=== PATIENT | female | born 1985 | race Caucasian/White ===

== ENCOUNTER 2020-07-19 01:18 | Outpatient (CLI) | payer OTHER, SELFPAY ==
[2020-07-19 16:30] LABS: SARS-CoV-2 RNA PCR Negative
== END 2020-07-19 01:19 | disposition home or self-care (01) ==
LOC: ANHCOVIDDT 01:18
PROVIDERS: Visit Provider Obstetrics & Gynecology Gynecology
DX: Z01.812 Encounter for preprocedural laboratory examination (principal); Z20.828 Contact with and (suspected) exposure to other viral communicable diseases
CPT/HCPCS: 87635; C9803; U0003

== ENCOUNTER 2020-07-22 02:00 | Day surgery (SDC) | payer OTHER, SELFPAY ==
[2020-07-08 12:54] VITALS: BMI 33.3
--- NOTE | 2020-07-21 09:50 | WPDANESEPP ---
Anes - Eval Pre Procedure Procedure: Operation Date: 07/22/20 07:30 Proposed Procedures p Laparoscopic Bilateral Tubal Ligation with Fallopian Rings - Bibiana Thompson MD Date/Time: 07/21/20 09:50 Pre Op Diagnosis: DESIRES STERILIZATION Patient Data Age: 35 Gender: F Height: 1.65 m Weight: 90.72 kg Allergies Allergy/AdvReac Type Severity Reaction Status Date / Time latex Allergy Unknown RASH Verified 07/08/20 12:55 Home Medications Medication Instructions Recorded Confirmed Type acetaminophen [Tylenol Extra 1,000 mg PO Q6H PRN 07/08/20 07/08/20 History Strength] ibuprofen 400 mg PO Q6H PRN 07/08/20 07/08/20 History levonorgestrel [Mirena] 1 device INTRAUTERINE ONCE 07/08/20 07/08/20 History multivitamin 1 tablet PO DAILY 07/08/20 07/08/20 History Patient hx anesthesia problems: none Family hx anesthesia problems: none PMFSH Past Medical History Medical History (Updated 07/21/20 @ 09:50 by Derek Iglesias CRNA) Anxiety Back pain Surgical History Surgical History (Updated 07/21/20 @ 09:51 by Derek Iglesias CRNA) History of tonsillectomy S/P cholecystectomy Family History Family History (Updated 05/15/16 @ 23:21 by DOCTOR UNKNOWN) Mother Patient's mother is in good health Father Patient's father is in good health Sibling Patient's brother is in good health Social History Social History Smoking status: Never smoker Alcohol intake: current Drinks per week: 1 Spiritual care concerns: No Exam Day of Procedure 07/21/20 09:50
[2020-07-22] VITALS (11 sets, daily range): BP systolic 101–124; BP diastolic 67–84; PULSE 59–87; RESP 12–22; TEMP 36.6–36.8; O2SAT 93–100
[2020-07-22] MEDS: LACTATED RINGERS 1,000 ML 30 ML IV CONT ×2 (06:50→08:41)
--- NOTE | 2020-07-22 06:50 | WPDANESEPPF ---
Anes - Initial Pre Proc Eval Procedure: Operation Date: 07/22/20 07:30 Proposed Procedures p Laparoscopic Bilateral Tubal Ligation with Fallopian Rings - Bibiana Thompson MD Date/Time: 07/22/20 06:50 Surgeon: Bibiana Thompson MD Pre Op Diagnosis: DESIRES STERILIZATION Patient Data Age: 35 Gender: F Height: 1.65 m Weight: 90.72 kg Allergies Allergy/AdvReac Type Severity Reaction Status Date / Time latex Allergy Unknown RASH Verified 07/08/20 12:55 Home Medications Medication Instructions Recorded Confirmed Type acetaminophen [Tylenol Extra 1,000 mg PO Q6H PRN 07/08/20 07/08/20 History Strength] ibuprofen 400 mg PO Q6H PRN 07/08/20 07/08/20 History levonorgestrel [Mirena] 1 device INTRAUTERINE ONCE 07/08/20 07/08/20 History multivitamin 1 tablet PO DAILY 07/08/20 07/08/20 History Patient hx anesthesia problems: none Family hx anesthesia problems: none PMFSH Past Medical History Medical History (Updated 07/21/20 @ 09:50 by Derek Iglesias CRNA) Anxiety Back pain Surgical History Surgical History (Updated 07/21/20 @ 09:51 by Derek Iglesias CRNA) History of tonsillectomy S/P cholecystectomy Family History Family History (Updated 05/15/16 @ 23:21 by DOCTOR UNKNOWN) Mother Patient's mother is in good health Father Patient's father is in good health Sibling Patient's brother is in good health Social History Social History Smoking status: Never smoker Alcohol intake: current Drinks per week: 1 Spiritual care concerns: No Anes - Eval Final PreProcedure Day of Procedure 07/22/20 06:50 Patient weight: obese Heart: regular rate and rhythm Lungs: clear to auscultation and normal air movement Airway: Mallampati scale class II Neurological: alert and oriented Last oral intake: >/= 8 hours ASA classification: II Emergent: no Anesthetic plan: proceed Anesthesia type and monitoring: general ETT and standard monitoring Informed Consent: The patient's anesthetic plan and its attendant risks and benefits were discussed with the patient/family/POA. Questions were solicited and answers provided to the satisfaction of the patient/family/POA.
[2020-07-22] MEDS: KETOROLAC 15 MG/ML VIAL (*BKC) IV PUSH (06:51)
[2020-07-22] MEDS: ACETAMINOPHEN 500 MG TABLET 1000 MG PO (06:51)
--- NOTE | 2020-07-22 07:18 | PM.IMHP ---
H&P: HPI History of Present Illness Date/Time: 07/22/20 07:18 Chief complaint: DESIRES STERILIZATION Narrative: Mathew Reese is a 35 year old female who has completed her childbearing and want to proceed with permanent control via sterilization. She also prefers her IUD be removed. Risks of infection, bleeding, injury to internal organs, and failure (with increased ectopic) were reviewed with the patient. She is aware this will be done under general anesthesia. Post op expectations reviewed. Patient questions answered and she agrees to proceed. PMFSH Past Medical History Medical History (Updated 07/22/20 @ 07:22 by Bibiana Thompson MD) Anxiety Asthma until high school Back pain (normal spontaneous vaginal delivery) x 3 Surgical History Surgical History (Updated 07/21/20 @ 09:51 by Derek Iglesias CRNA) History of tonsillectomy S/P cholecystectomy Family History Family History (Updated 05/15/16 @ 23:21 by DOCTOR UNKNOWN) Mother Patient's mother is in good health Father Patient's father is in good health Sibling Patient's brother is in good health Social History Social History Smoking status: Never smoker Alcohol intake: current Drinks per week: 1 Spiritual care concerns: No Meds Home Medications and Allergies Home Medications Medication Instructions Recorded Confirmed Type acetaminophen [Tylenol Extra 1,000 mg PO Q6H PRN 07/08/20 07/08/20 History Strength] ibuprofen 400 mg PO Q6H PRN 07/08/20 07/08/20 History levonorgestrel [Mirena] 1 device INTRAUTERINE ONCE 07/08/20 07/08/20 History multivitamin 1 tablet PO DAILY 07/08/20 07/08/20 History Allergies Allergy/AdvReac Type Severity Reaction Status Date / Time latex Allergy Unknown RASH Verified 07/08/20 12:55 Exam Const: General: no acute distress Resp: Auscultation: clear to auscultation bilaterally Cardio: Rate: regular rate Rhythm: regular rhythm : External Female Exam: normal external appearance Speculum Exam - Vagina: normal appearance of the vagina Speculum Exam - Cervix: normal appearance of the cervix Bimanual exam- vagina & uterus: normal bimanual exam Assessment and Plan Assessment and plan (1) Encounter for sterilization: Code(s): Z30.2 - Encounter for sterilization Status: Acute Assessment and Plan: Plan to proceed with laparoscopic BTL with falope rings and removal of IUD
--- NOTE | 2020-07-22 07:22 | WPDHPUPDATE1 ---
History and Physical Update Update Date/Time: 07/22/20 07:22 History and Physical has been reviewed, including an updated exam of the patient. There are NO changes in the patient's condition. Risks, benefits, and alternatives have been discussed and questions answered. Patient agrees to proceed with procedure.
--- NOTE | 2020-07-22 08:17 | PM.PROC ---
Procedure Note - Detailed Date of procedure: 07/22/20 Pre-op diagnosis: DESIRES STERILIZATION Removal of IUD with missing strings Post-op diagnosis: same Procedure performed: Removal of IUD Laparoscopic BTL with falope rings Description of procedure: The patient was taken to the operating room and placed in the dorsal lithotomy position. She was prepped and draped in the usual sterile fashion. Bladder is drained with a latex-free catheter. [place] speculum was placed in the vagina and the cervix is grasped on the anterior lip with a tenaculum. No IUD strings are noted. The uterus is sounded to 7cm and noted to be anteverted. The uterine packing forceps are used to grasp the IUD strings within the uterine cavity and the IUD removed intact. The IUD is discarded. DAVE manipulator 6cm is placed. Attention is then turned to the abdomen. A vertical skin incision is made at the base of the umbilicus. The abdomen is tented and the varies needle placed. Water drop test and opening patient pressure is 7cm. Pneumoperitoneum was obtained to patient pressure of 15mmHg. The Veress needle is removed and the 5mm Optiview trocars placed. Intra-abdominal placement is confirmed with the laparoscope. The 8mm skin incision was made 2cm above the symphysis pubis. The 8mm trocar is placed under direct visualization. The blunt probe is used to bring the tubes into the surgical field. The ring applicator is placed and the right tube grasped with a ring applicator. A loop is drawn into the applicator and the ring is applied. The identical procedure was performed on the opposite side. Bilaterally there is a good loop of tube within each ring. Picture documentation is taken. All instruments are removed. Pneumoperitoneum is reduced. Skin incisions are closed using 4-0 nylon in an interrupted fashion. Sterile bandages are applied. Vaginal instruments are removed. Instrument sponge and needle counts are correct per the OR staff. Patient is awakened from anesthesia and taken to recovery in stable condition. Anesthesia: GETA Surgeon: Bibiana Thompson MD Estimated blood loss (mL): 5 Drains: No Packing: No Pathology: none sent Complications: No immediate complications Condition: stable Disposition: PACU Findings: No IUD strings Uterus 7 cm normal appearing tubes, ovaries, and uterus
[2020-07-22] MEDS: HYDROmorphone HCL INJ (*CRX) 1 MG/ML SYR 0.5 MG IV PUSH ×4 (08:26→08:51)
[2020-07-22] MEDS: diphenhydrAMINE HCl INJ 50 MG/ML VIAL 12.5 MG IV PUSH ×2 (08:47→08:58)
[2020-07-22] MEDS: fentaNYL CITRATE INJ (*CRX) 100 MCG/2 ML VIAL 25 MCG IV PUSH ×2 (09:48→09:53)
[2020-07-22] MEDS: oxyCODONE HCL (*CRX) 5 MG TAB IR PO (10:32)
== END 2020-07-22 11:25 | disposition home or self-care (01) ==
PROVIDERS: Visit Provider Obstetrics & Gynecology Gynecology
PROC: (CPT 58671; principal; 2020-07-22 07:30)
DX: Z30.2 Encounter for sterilization (principal); T83.32XA Displacement of intrauterine contraceptive device, initial encounter; Y84.8 Other medical procedures as the cause of abnormal reaction of the patient, or of later complication, without mention of misadventure at the time of the procedure
CPT/HCPCS: 58671; 58301; A4264; A9270; J1100; J1170; J1200; J1885; J2250; J2405; J2704; J3010; J7120

== ENCOUNTER 2022-09-02 09:41 | Emergency (ER) | payer OTHER, SELFPAY ==
--- NOTE | ~2022-09-02 | US_ITS ---
EXAMINATION: US venous doppler [facility] DATE: 09/02/2022 10:53 INDICATION: Left lower limb pain and swelling TECHNIQUE: Grayscale ultrasound images without and with compression and Doppler ultrasound images of the left lower extremity veins were obtained. COMPARISON: None. FINDINGS: The visualized portions of left common femoral vein, profunda (deep) femoral vein, femoral vein, popl iteal vein, peroneal veins, posterior tibial veins, gastrocnemius vein and greater saphenous vein out flow are patent. IMPRESSION: 1. No deep venous thrombosis in the left lower limb. Reviewed, dictated and finalized at location B. MATIC SYSTEM CONVEYOR OPERATOR
[2022-09-02 10:09] VITALS: BP 129/92; PULSE 88; RESP 14; TEMP 36.5; O2SAT 100
--- NOTE | 2022-09-02 11:54 | ED.LOWEXIN ---
HPI - Extremity Injury (Lower) General Chief Complaint: Extremity Injury, Lower Stated Complaint: L calf pain Time Seen by Provider: 09/02/22 11:54 Source: patient History of Present Illness HPI Narrative: 37 years old white female drove herself to the emergency room because of pain at the left calf muscles started few days ago. Patient is telling me that she drove her car for roughly 3 hours in the row and she is concerned about the possibility of deep vein thrombosis. Patient denies shortness of breath or chest pain. She denies recent trauma or twist or fall Related Data Home Medications Medication Instructions Recorded Confirmed acetaminophen 500 mg tablet 1,000 mg PO Q6H PRN Pain 07/08/20 07/22/20 (Tylenol Extra Strength) ibuprofen 400 mg tablet 400 mg PO Q6H PRN Pain 07/08/20 07/22/20 levonorgestrel 20 mcg/24 hours (8 1 device intrauterine ONCE 07/08/20 07/08/20 yrs) 52 mg intrauterine device (Mirena) multivitamin 1 tablet PO DAILY 07/08/20 07/22/20 Allergies Allergy/AdvReac Type Severity Reaction Status Date / Time latex Allergy Unknown RASH Verified 07/22/20 07:31 Review of Systems Review of Systems: All systems reviewed & are unremarkable except as noted in HPI and below PMFSH Past Medical History Medical History Anxiety Asthma until high school Back pain (normal spontaneous vaginal delivery) x 3 Surgical History Surgical History History of tonsillectomy S/P cholecystectomy Family History Family History Mother Patient's mother is in good health Father Patient's father is in good health Sibling Patient's brother is in good health Social History Social History Smoking status: Never smoker Alcohol intake: current Drinks per week: 1 Spiritual care concerns: No Exam Narrative: General appearance: Well-developed, well-nourished Skin: Normal color Head: Normocephalic, nontraumatic Eyes: Clear conjunctiva ENT: Oropharynx normal, ears normal, nose normal Neck: Supple, nontender Chest and respiratory: Airway patent, no respiratory distress, no accessory muscle use Heart: Regular rate/rhythm Abdomen: Soft, nontender, no organomegaly, quiet bowel sounds Vascular: Normal peripheral pulses, normal capillary refill. Musculoskeletal: Slight tenderness left calf muscles, no bruises, no rash, no swelling, both lower legs are the same size. Slight more varicose vein at the left lower leg compared to the right 1. 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, no gross motor deficit Course Vital Signs Vital signs: Vital Signs Temperature 36.5 C 09/02/22 10:09 Pulse Rate 88 09/02/22 10:09 Respiratory Rate 14 09/02/22 10:09 Blood Pressure 129/92 H 09/02/22 10:09 Pulse Oximetry 100 09/02/22 10:09 Oxygen Delivery Room Air 09/02/22 10:09 Temperature 36.5 C 09/02/22 10:09 Pulse Rate 88 09/02/22 10:09 Respiratory Rate 14 09/02/22 10:09 Blood Pressure 129/92 H 09/02/22 10:09 Pulse Oximetry 100 09/02/22 10:09 Oxygen Delivery Room Air 09/02/22 10:09 MDM - Extremity Injury (Lower) Imaging Data Radiologist's impression: Impressions Venous Doppler Study 09/02/22 10:53 IMPRESSION: 1. No deep venous thrombosis in the left lower limb. Critical Care Time Critical Care Time Critical Care Time: No Discharge Plan Discharge Clinical Impression: Left leg pain, Varicose ve
== END 2022-09-02 12:20 | disposition home or self-care (01) ==
PROVIDERS: Emergency Provider Emergency Medicine; PCP Emergency Medicine
DX: M79.662 Pain in left lower leg (principal); I83.812 Varicose veins of left lower extremity with pain
CPT/HCPCS: 93971; 99284

== ENCOUNTER 2024-02-24 10:14 | Outpatient (CLI) | payer OTHER, SELFPAY ==
--- NOTE | ~2024-02-24 | US_ITS ---
Pelvic ultrasound. Clinical History: Excessive and frequent menstruation Technique: Realtime transabdominal scanning of the pelvis was performed. Color flow Doppler and Doppl er spectral analysis were performed. Findings: The uterus is anteverted. The endometrial stripe has a thickness of 5 mm. No focal mass is identified. The right ovary measures 2.3 x 2.0 x 2.5 cm. No significant right ovarian or adnexal mass is seen. The left ovary measures 2.0 x 2.0 x 2.3 cm. No significant left ovarian or adnexal mass is seen. Vascular flow present in both ovaries on Doppler spectral analysis. There is no evidence of free fluid in the cul de sac. Impression: Unremarkable pelvic ultrasound. Reviewed, dictated and finalized at location . Impression: Unremarkable pelvic ultrasound.
== END 2024-02-24 10:15 ==
PROVIDERS: PCP Nurse Practitioner; Visit Provider Nurse Practitioner
DX: N92.0 Excessive and frequent menstruation with regular cycle (principal)
CPT/HCPCS: 76856

== ENCOUNTER 2024-04-21 13:09 | Emergency (ER) | payer OTHER, SELFPAY ==
--- NOTE | ~2024-04-21 | XR_ITS ---
EXAMINATION: XR chest 2V DATE: 04/21/2024 13:47 INDICATION: Chest pain. Epigastric abdominal pain. TECHNIQUE: Frontal and lateral views of the chest were obtained. COMPARISON: None. FINDINGS: There is no pneumonia, pleural effusion, or pneumothorax. The heart size is normal. Surgica l clips in the right upper quadrant are likely from cholecystectomy. IMPRESSION: 1. No acute cardiopulmonary disease. Reviewed, dictated and finalized at location A.
--- NOTE | 2024-04-21 13:11 | ECG_ITS ---
Test Date: 2024-04-21 13:17:42 Measurements Intervals [place] Rate: 80 P: -4 NE: 134 QRS: -24 QRSD: 99 T: -8 QT: 373 QTc: 431 Interpretive Statements SINUS RHYTHM VOLTAGE CRITERIA FOR LVH BORDERLINE T WAVE ABNORMALITY- INFERIOR LEADS BASELINE ARTIFACT- II, III, AVR, AVL, AVF BORDERLINE ECG No previous ECG available for comparison Electronically Signed On 04-21-2024 13:19:17 CDT by Mati Riggs D.O.
[2024-04-21 13:12] VITALS: BP 144/85; PULSE 80; RESP 16; O2SAT 100
[2024-04-21 13:50] LABS: Basophils Percent Auto 0.8 % (0.2-1.2); Hematocrit 42.1 % (37.0-47.0); Hemoglobin 14.3 g/dL (12.0-15.0); Lymphocytes Absolute Auto 1.48 K/mm3 (0.9-3.2); Lymphocytes Percent Auto 37.8 % (18.3-44.2); Mean Corpuscular Hemoglobin 30.1 pg (26-34); Mean Corpuscular Volume 88.6 fl (80-100); Mean Platelet Volume 10.4 fl (7.4-10.4); Monocytes Absolute Auto 0.3 K/mm3 (0.1-0.6); Monocytes Percent Auto 7.7 % (2.6-8.5); Neutrophils Absolute Auto 2.1 K/mm3 (1.3-6.7); Neutrophils Percent Auto 52.7 % (45.5-73.1); Platelet Count Result 232 k/mm3 (150-375); Red Blood Count 4.75 M/mm3 (4.2-5.4); Red Cell Distribution Width 12.5 % (11.5-14.5); White Blood Count 3.9 K/mm3 (4.5-10.0)
[2024-04-21 14:00] LABS: Alanine Aminotransferase 23 U/L (6-35); Albumin Level 4.7 g/dL (3.5-5.1); Alkaline Phosphatase 75 U/L (38-126); Anion Gap 5 mmol/L (4-12); Aspartate Amino Transferase 26 U/L (14-36); Bilirubin,Total 0.7 mg/dL (0.2-1.3); Blood Urea Nitrogen 8 mg/dL (7-17); Calcium 9.3 mg/dL (8.4-10.2); Carbon Dioxide 28 mmol/L (22-30); Chloride 106 mmol/L (98-107); Estimated CRCL calculation 94 ml/min; Estimated Glomerular Filt Rate > 60; Glucose 109 mg/dL (65-110); Lipase 77 U/L (23-300); Sodium 139 mmol/L (137-145)
[2024-04-21 14:01] LABS: Prothrombin Time 13.2 Seconds (11.1-14.7)
[2024-04-21 14:02] LABS: Partial Thromboplastin Time 28.2 Seconds (22.3-36.8)
[2024-04-21 14:12] LABS: Troponin I < 0.012 ng/mL (0.000-0.034)
[2024-04-21 14:45] VITALS: PULSE 73; RESP 12; O2SAT 100
[2024-04-21 14:51] VITALS: O2SAT 100
[2024-04-21 14:53] VITALS: BP 114/77; PULSE 80; RESP 17; O2SAT 100
[2024-04-21 15:00] VITALS: PULSE 79; RESP 14; O2SAT 100
[2024-04-21 15:01] VITALS: BP 112/85; PULSE 93; RESP 27; O2SAT 100
--- NOTE | 2024-04-21 15:13 | ED.CHESTPAIN ---
HPI - Chest Pain General Chief Complaint: Chest Pain Stated Complaint: chest pain, L arm pain, facial numbness Time Seen by Provider: 04/21/24 14:48 History of Present Illness HPI narrative: Patient is a 39-year-old female who presents to the emergency department this afternoon complaining of chest pain that started yesterday. Patient admits that it is on and off and when asked where her chest pain is she points to her mid epigastric region. Patient denies any similar symptoms in the past but admits to history of acid reflux ever since she had her 1st child and does not take anything for it regularly, on and off as needed. She denies any fevers or chills at home, any URI symptoms, any nausea or vomiting and denies any additional symptoms or concerns at this time. Patient denies any history of cardiovascular disease. Related Data Home Medications Medication Instructions Recorded Confirmed acetaminophen 500 mg tablet 1,000 mg PO Q6H PRN Pain 07/08/20 07/22/20 (Tylenol Extra Strength) ibuprofen 400 mg tablet 400 mg PO Q6H PRN Pain 07/08/20 07/22/20 levonorgestrel 21 mcg/24 hr (up to 1 device intrauterine ONCE 07/08/20 07/08/20 8 years) 52 mg intrauterine device (Mirena) multivitamin 1 tablet PO DAILY 07/08/20 07/22/20 Allergies Allergy/AdvReac Type Severity Reaction Status Date / Time latex Allergy Unknown RASH Verified 07/22/20 07:31 Review of Systems Review of Systems: All systems are reviewed and are negative unless stated otherwise in the HPI. PMF Past Medical History Medical History Anxiety Asthma until high school Back pain (normal spontaneous vaginal delivery) x 3 Surgical History Surgical History History of tonsillectomy S/P cholecystectomy Family History Family History Mother Patient's mother is in good health Father Patient's father is in good health Sibling Patient's brother is in good health Social History Social History Smoking status: Never smoker Alcohol intake: current Drinks per week: 1 Spiritual care concerns: No Exam Narrative: General: Alert, awake, afebrile, in no acute distress, anxious. HEENT: PERRL, no rhinorrhea, no post nasal drip, oropharynx clear. Cardiovascular: Regular rate and rhythm, no murmurs, rubs or gallops, no peripheral edema. Respiratory: Clear to auscultation bilaterally, no tachypnea, no wheezing, no rhonchi, no rubs, no respiratory distress. Abdomen: Soft, nontender, nondistended, no rebound, no guarding, no peritoneal signs. Musculoskeletal: No joint swelling or deformity, normal muscle tone. Skin: No rashes or petechia, no signs of infection. Neurological: Alert and oriented to person, place, and time. Follows all commands. No focal deficits, speech is clear and fluent. Course Vital Signs Vital signs: Vital Signs Pulse Rate 80 04/21/24 13:12 Respiratory Rate 16 04/21/24 13:12 Blood Pressure 144/85 H 04/21/24 13:12 Pulse Oximetry 100 04/21/24 13:12 Oxygen Delivery Room Air 04/21/24 13:12 Pulse Rate 80 04/21/24 14:53 Respiratory Rate 17 04/21/24 14:53 Blood Pressure 114/77 04/21/24 14:53 Pulse Oximetry 100 04/21/24 14:53 Oxygen Delivery Room Air 04/21/24 14:51 MDM - Chest Pain MDM Narrative Medical decision making narrative: The patient was evaluated by myself in the emergency department. History is obtained from patient who is an independent historian and physical exam was performed. External medical records were reviewed at this time. IV was established and pertinent tests were ordered. EKG was obtained which revealed sinus rhythm at a rate of 80 beats per minute. No ST changes, T wave inversions or evidence of acute ischemia. EKG was independent
== END 2024-04-21 15:34 | disposition home or self-care (01) ==
PROVIDERS: Nurse Practitioner Family; Emergency Provider Emergency Medicine; PCP Nurse Practitioner
DX: R07.9 Chest pain, unspecified (principal); Z90.49 Acquired absence of other specified parts of digestive tract; Z97.5 Presence of (intrauterine) contraceptive device; R94.31 Abnormal electrocardiogram [ECG] [EKG]
CPT/HCPCS: 36415; 71046; 80053; 83690; 84484; 85025; 85610; 85730; 93005; 99284

== ENCOUNTER 2025-03-28 12:52 | Outpatient (CLI) | payer OTHER, SELFPAY ==
--- NOTE | ~2025-03-28 | CT_ITS ---
CT of the Abdomen and Pelvis: Indication: Abdominal pain Technique: 2.5 mm axial scans were obtained through the abdomen and pelvis following intravenous adm inistration of 100 cc of Omnipaque 350. Dose reduction technique was used on this scan by utilizing a utomated exposure control and iterative reconstruction technique. The dose-length product (DLP) was 8 67.88 mGy-cm. Findings: Scans through the lung bases are unremarkable. The liver, spleen, pancreas, adrenals and kidneys are within normal limits. Cholecystectomy clips are present. No evidence of aortic aneurysm. No lymphadenopathy. No bowel obstruction or bowel wall thickening. There is no evidence to suggest acute appendicitis. Images through the pelvis were performed. Urinary bladder unremarkable. No pelvic mass seen. Trace pe lvic ascites noted. Impression: Trace pelvic ascites, otherwise unremarkable exam. Reviewed, dictated and finalized at [facility]. Impression: Trace pelvic ascites, otherwise unremarkable exam.
== END 2025-03-28 12:53 | disposition home or self-care (01) ==
LOC: MICIMG 12:53
PROVIDERS: PCP Obstetrics & Gynecology Gynecology; Visit Provider Obstetrics & Gynecology Gynecology
DX: R10.9 Unspecified abdominal pain (principal); R10.2 Pelvic and perineal pain
CPT/HCPCS: 74177; Q9967